=== PATIENT | female | born 1950 | race Caucasian/White ===

== ENCOUNTER 2020-04-25 07:35 | Day surgery (SDC) | payer MEDICARE, OTHER ==
[~2020-04-25] VITALS: Ht 162.6 cm; Wt 87.1 kg
[2020-04-25] VITALS (11 sets, daily range): BP systolic 110–171; BP diastolic 54–99
[2020-04-25] MEDS ORDERED: normal saline 1,000 ML IV SCH (08:35)
[2020-04-25] MEDS ORDERED: diphenhydrAMINE 25mg capsule PO PRN (08:35)
[2020-04-25] MEDS ORDERED: CYCL-1 PO (08:37)
[2020-04-25] MEDS ORDERED: iron PO (08:39)
[2020-04-25] MEDS ORDERED: MULT-1085 PO (08:40)
[2020-04-25] MEDS ORDERED: FURO-150 PO (08:43)
[2020-04-25 08:44] LABS: BASOPHILS % (AUTO) 0.7 % (0-1); EOSINOPHILS # (AUTO) 0.1 X10'3 (0-0.9); EOSINOPHILS % (AUTO) 3.5 % (0-6); HEMATOCRIT 37.1 % (35.0-45.0); HEMOGLOBIN 12.1 g/dl (12.0-16.0); LYMPHOCYTES # (AUTO) 1.4 X10'3 (1.1-4.8); LYMPHOCYTES % (AUTO) 34.2 % (21-51); MEAN CORPUSCULAR HEMOGLOBIN 25.9 PG (27.0-31.0); MEAN CORPUSCULAR HGB CONC 32.5 g/dL (33.0-36.5); MEAN CORPUSCULAR VOLUME 79.6 FL (78-98); MONOCYTES # (AUTO) 0.4 X10'3 (0-0.9); MONOCYTES % (AUTO) 8.8 % (2-12); NEUTROPHILS # (AUTO) 2.2 X10'3 (1.8-7.7); NEUTROPHILS % (AUTO) 52.8 % (42-75); PLATELET COUNT 156 X10'3 (140-440); RED BLOOD COUNT 4.66 X10'6 (4.20-5.60); WHITE BLOOD COUNT 4.2 X10'3 (4.5-11.0)
[2020-04-25] MEDS ORDERED: MORP60CP14 PO (08:44)
[2020-04-25] MEDS ORDERED: HYDR-4353 PO (08:45)
[2020-04-25] MEDS ORDERED: SERT100T PO (08:49)
[2020-04-25 08:56] LABS: ALBUMIN 3.7 G/DL (3.4-5.0); BLOOD UREA NITROGEN 14 MG/DL (7-18); BUN/CREATININE RATIO 15.2 (6.6-38.0); CHLORIDE 106 MMOL/L (99-107); CREATININE 0.92 MG/DL (0.40-0.90); GLUCOSE 93 MG/DL (70-104); POTASSIUM 4.1 MMOL/L (3.5-5.1); TOTAL CARBON DIOXIDE 28.5 MMOL/L (24-32); eGFR 61 ML/MIN
[2020-04-25 08:57] LABS: ANION GAP 9 (8-16); SODIUM 143 MMOL/L (135-145)
[2020-04-25] MEDS ORDERED: LIDOcaine 1% (10mg/ml)w/preservative injection 20ml MDV ONE (13:15)
[2020-04-25] MEDS ORDERED: midazolam 2 mg/2 ml injection ONE ×3 (13:15→14:12)
[2020-04-25] MEDS ORDERED: fentaNYL/PF 50MCG/1 ML 2ML syringe ONE (13:15)
[2020-04-25] MEDS ORDERED: heparin 1,000unit/ml 10ml vial 10 ML ONE (13:16)
[2020-04-25] MEDS ORDERED: iohexol 350MG/ML 100ml bottle IV ONE (13:16)
[2020-04-25] MEDS ORDERED: iohexol 350 MG/ML 50ML vial IV ONE (13:16)
[2020-04-25] MEDS ORDERED: HYDROcodone/acetaminophen 5mg/325mg tablet PO PRN (15:15)
[2020-04-25] MEDS ORDERED: OXAZEpam 15mg capsule PO PRN (15:15)
[2020-04-25] MEDS ORDERED: HYDROcodone/acetaminophen 10/325mg tab PO PRN (15:15)
== END 2020-04-25 17:50 | disposition home or self-care (01) ==
LOC: SSTAY O 07:35
PROVIDERS: ATTEND Internal Medicine Cardiovascular Disease
DX: I27.20 Pulmonary hypertension, unspecified (principal); I25.10 Atherosclerotic heart disease of native coronary artery without angina pectoris; F10.10 Alcohol abuse, uncomplicated; I45.10 Unspecified right bundle-branch block; M81.0 Age-related osteoporosis without current pathological fracture; M41.9 Scoliosis, unspecified; M19.90 Unspecified osteoarthritis, unspecified site; I45.2 Bifascicular block; E80.1 Porphyria cutanea tarda; D50.0 Iron deficiency anemia secondary to blood loss (chronic); Z87.891 Personal history of nicotine dependence; Z86.19 Personal history of other infectious and parasitic diseases; Z79.899 Other long term (current) drug therapy
CPT/HCPCS: 36415; 80048; 83735; 85025; 85610; 93005; 93460; 99152; 99153; C1760; C1769; C1894; J1644; J2001; J2250; J3010; J7030; Q0163; Q9967; A4620; A6258; C1751

== ENCOUNTER 2022-05-21 06:19 | Day surgery (SDC) | payer MEDICARE ==
[2022-05-21] VITALS (11 sets, daily range): BP systolic 122–164; BP diastolic 61–91
[~2022-05-21] VITALS: Ht 160 cm; Wt 79.4 kg
[~2022-05-21 06:19] MED LIST: CYCL-1 PO; FURO-150 PO; HYDR-4353 PO; MORP60CP14 PO; MULT-1085 PO; SERT100T PO; iron PO
[2022-05-21] MEDS ORDERED: normal saline 1,000 ML IV SCH (06:45)
[2022-05-21] MEDS ORDERED: diphenhydrAMINE 25mg capsule PO PRN (06:45)
[2022-05-21] MEDS ORDERED: OXYC1TAB17 PO (06:57)
[2022-05-21] MEDS ORDERED: NALO25TA4 PO (06:58)
[2022-05-21 07:09] LABS: ALBUMIN 3.8 G/DL (3.4-5.0); ANION GAP 7 (8-16); BLOOD UREA NITROGEN 22 MG/DL (7-18); BUN/CREATININE RATIO 26.2 (6.6-38.0); CHLORIDE 105 MMOL/L (99-107); CREATININE 0.84 MG/DL (0.40-0.90); GLUCOSE 101 MG/DL (70-104); MAGNESIUM 2.2 MG/DL (1.5-2.4); POTASSIUM 3.8 MMOL/L (3.5-5.1); SODIUM 140 MMOL/L (135-145); TOTAL CARBON DIOXIDE 28.5 MMOL/L (24-32); eGFR 67 ML/MIN
[2022-05-21 07:11] LABS: BASOPHILS % (AUTO) 0.8 % (0-1); EOSINOPHILS # (AUTO) 0.2 X10'3 (0-0.9); EOSINOPHILS % (AUTO) 3.6 % (0-6); HEMATOCRIT 41.5 % (35.0-45.0); HEMOGLOBIN 13.6 g/dl (12.0-16.0); LYMPHOCYTES # (AUTO) 1.6 X10'3 (1.1-4.8); LYMPHOCYTES % (AUTO) 32.9 % (21-51); MEAN CORPUSCULAR HEMOGLOBIN 27.9 PG (27.0-31.0); MEAN CORPUSCULAR HGB CONC 32.8 g/dL (33.0-36.5); MEAN PLATELET VOLUME 7.7 FL (7.4-10.4); MONOCYTES # (AUTO) 0.5 X10'3 (0-0.9); MONOCYTES % (AUTO) 9.9 % (2-12); NEUTROPHILS # (AUTO) 2.6 X10'3 (1.8-7.7); NEUTROPHILS % (AUTO) 52.8 % (42-75); PLATELET COUNT 147 X10'3 (140-440); RED BLOOD COUNT 4.88 X10'6 (4.20-5.60); RED CELL DISTRIBUTION WIDTH 16.9 % (11.5-14.5); WHITE BLOOD COUNT 4.9 X10'3 (4.5-11.0)
[2022-05-21] MEDS ORDERED: LIDOcaine 1% 30ml preserv. free vial ONE (08:53)
[2022-05-21] MEDS ORDERED: midazolam 1 mg/ML 2ml injection ONE ×3 (08:53→10:09)
[2022-05-21] MEDS ORDERED: fentaNYL/PF 50MCG/1 ML 2ML syringe ONE (08:53)
[2022-05-21] MEDS ORDERED: iohexol 350MG/ML 100ml bottle IV ONE ×2 (09:31→10:15)
[2022-05-21] MEDS ORDERED: heparin 1,000unit/ml 10ml vial 10 ML ONE (09:49)
[2022-05-21] MEDS ORDERED: iohexol 350 MG/ML 50ML vial IV ONE (10:32)
[2022-05-21] MEDS ORDERED: ondansetron/PF 4mg/2ml inj IV PRN (11:10)
[2022-05-21] MEDS ORDERED: proCHLORperazine 10 MG/2 ml inj IV PRN (11:15)
[2022-05-21] MEDS ORDERED: HYDROcodone/acetaminophen 5mg/325mg tablet PO PRN (11:15)
[2022-05-21] MEDS ORDERED: HYDROcodone/acetaminophen 10/325mg tab PO PRN (11:15)
[2022-05-21 11:48] LABS: ISTAT Hct MIX 37 %PCV (35-45); ISTAT O2 SATURATION MIX VENOUS 74 % (60-80); ISTAT SOURCE OTHER
[2022-05-21 11:48] LABS: ISTAT HGB ART 12.2 g/dl (12.0-16.0); ISTAT Hct ART 36 %PCV (35-45); ISTAT O2 SATURATION ARTERIAL 97 % (95-98); ISTAT SOURCE BLNK
[2022-05-21 11:48] LABS: ISTAT Hct MIX 38 %PCV (35-45); ISTAT O2 SATURATION MIX VENOUS 79 % (60-80); ISTAT SOURCE VEN
[2022-05-21 11:48] LABS: ISTAT HGB ART 12.6 g/dl (12.0-16.0); ISTAT Hct ART 37 %PCV (35-45); ISTAT O2 SATURATION ARTERIAL 95 % (95-98); ISTAT SOURCE BLNK
== END 2022-05-21 15:00 | disposition home or self-care (01) ==
LOC: SSTAY O 06:19
PROVIDERS: ATTEND Internal Medicine Cardiovascular Disease
DX: Q21.10 Atrial septal defect, unspecified (principal); I27.20 Pulmonary hypertension, unspecified; I45.2 Bifascicular block; I35.0 Nonrheumatic aortic (valve) stenosis; E80.1 Porphyria cutanea tarda; B19.20 Unspecified viral hepatitis C without hepatic coma; D50.0 Iron deficiency anemia secondary to blood loss (chronic); Z87.891 Personal history of nicotine dependence; Z79.899 Other long term (current) drug therapy
CPT/HCPCS: 36415; 80048; 82803; 83735; 85014; 85025; 85610; 93005; 93456; 93569; 93574; 99152; 99153; C1751; C1769; C1894; J1644; J2250; J3010; J3490; J7030; Q0163; Q9967; 93451; 93573

== ENCOUNTER 2023-08-06 18:45 | Emergency (ER) | payer MEDICARE ==
[~2023-08-06] VITALS: Ht 160 cm; Wt 68.2 kg
[~2023-08-06 18:45] MED LIST changes: -HYDR-4353 PO; +NALO25TA4 PO; +OXYC1TAB17 PO
[2023-08-06 19:10] VITALS: BP 131/81; PULSE 85; TEMP 98.2; O2SAT 95
[2023-08-06] MEDS ORDERED: ketorolac trometh inj. 60 MG/2 ML VIAL IM ONE (20:35)
[2023-08-06 20:46] VITALS: RESP 17
[2023-08-06] MEDS: ketorolac tromethamine 15mg/ml inj. IM ONE (20:46)
== END 2023-08-06 20:57 | disposition home or self-care (01) ==
LOC: ER 18:46
DX: S01.81XA Laceration without foreign body of other part of head, initial encounter (principal); S51.811A Laceration without foreign body of right forearm, initial encounter; W18.30XA Fall on same level, unspecified, initial encounter; Y93.89 Activity, other specified; Y92.89 Other specified places as the place of occurrence of the external cause; Y99.8 Other external cause status
CPT/HCPCS: 12011; 70450; 96372; 99285; J1885

== ENCOUNTER 2024-03-01 16:52 | Emergency (ER) | payer MEDICARE ==
[~2024-03-01] VITALS: Ht 160 cm; Wt 62.7 kg
[2024-03-01] MEDS: oxyCODONE/APAP 10/325mg tablet PO ONE (17:15)
[2024-03-01 19:01] VITALS: BP 158/90; PULSE 60; RESP 16; TEMP 98.7; O2SAT 98
== END 2024-03-01 19:03 | disposition home or self-care (01) ==
LOC: ER 16:53
DX: S70.12XA Contusion of left thigh, initial encounter (principal); Z79.899 Other long term (current) drug therapy; W18.39XA Other fall on same level, initial encounter; Y93.89 Activity, other specified; Y92.89 Other specified places as the place of occurrence of the external cause; Y99.8 Other external cause status
CPT/HCPCS: 73552; 99284